=== PATIENT | male | born 1980 | race Caucasian/White ===

== ENCOUNTER 2016-06-25 22:07 | Emergency (ER) | payer BC ==
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
[2016-06-25 23:53] VITALS: BP 121/72; PULSE 65; RESP 18; TEMP 97.8; O2SAT 99
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
== END 2016-06-25 23:53 | disposition home or self-care (01) ==
LOC: C.ER 22:07
DX: S09.90XA Unspecified injury of head, initial encounter (principal); W21.09XA Struck by other hit or thrown ball, initial encounter; Y93.69 Activity, other involving other sports and athletics played as a team or group; Y92.89 Other specified places as the place of occurrence of the external cause